=== PATIENT | male | born 1950 | race Caucasian/White ===

== ENCOUNTER 2019-04-14 10:00 | Outpatient (CLI) | payer MEDICARE ==
[2019-04-14 11:04] LABS: A1C 6.3 % (<5.7)
[2019-04-14 11:17] LABS: HDL 49 mg/dL (>40); eGFR (Non-African) > 60
== END 2019-04-14 10:05 ==
LOC: LAB 10:00
PROVIDERS: ATTEND Family Medicine
DX: E11.42 Type 2 diabetes mellitus with diabetic polyneuropathy (principal)
CPT/HCPCS: 36415; 80053; 80061; 83036